=== PATIENT | female | born 1955 | race Caucasian/White ===

== ENCOUNTER 2018-06-26 05:33 | Inpatient (IN) | payer BC, OTHER ==
[2018-06-26] MEDS ORDERED: Magnesium Sulfate 2 GM/100 ML BAG ONE (05:51)
[2018-06-26] MEDS ORDERED: methylPREDNISolone Sod Succ/PF 125 MG/2 ML VIAL ONE (06:10)
[2018-06-26 06:12] LABS: #Basophils 0.2 thou/uL (0.0-0.2); #Eosinphils 2.5 thou/uL (0.0-0.7); #Lymphocytes 4.2 thou/uL (1.20-3.40); #Monocytes 0.9 thou/uL (0.11-0.59); #Neutrophils 6.2 thou/uL (1.40-6.50); %Basophils 1.4 % (0.0-1.0); %Eosinophils 18.1 % (0.0-10.0); %Monocytes 6.2 % (0.0-10.0); %Neutrophils 44.3 % (42.0-75.0); Hemoglobin 11.9 g/dL (12.0-16.0); Mean Corpuscular HGB CONC 32.3 g/dL (32.0-36.0); Mean Corpuscular Hemoglobin 26.2 pg (27.0-31.0); Mean Corpuscular Volume 81.2 fL (78.0-98.0); Mean Platelet Volume 8.1 fL (7.4-10.4); Platelet Count 277 thou/uL (130-400); RBC Distribution Width 13.6 % (11.5-14.5); Red Blood Cell (RBC) Count 4.55 mill/uL (4.20-5.40); White Blood Cell (WBC) Count 13.9 thou/uL (4.8-10.8)
[2018-06-26 06:25] LABS: ALT (SGPT) 18 U/L (8-55); AST (SGOT) 21 U/L (5-34); Albumin 4.2 g/dL (3.4-4.8); Alkaline Phosphatase 98 U/L (40-150); Anion Gap 13 mmol/L (10-20); BUN (Urea Nitrogen) 12 mg/dL (9.8-20.1); Bilirubin, Total 0.6 mg/dL (0.2-1.2); CK (CPK) 172 U/L (29-168); Calc. Creatinine Clearance 0 mL/min (70-130); Calcium 9.7 mg/dL (7.8-10.44); Carbon Dioxide 27 mmol/L (23-31); Chloride 95 mmol/L (98-107); Estimated GFR-MDRD 77; Globulin 2.5 g/dL (2.4-3.5); Glucose 108 mg/dL (80-115); Protein, Total 6.7 g/dL (6.0-8.3); Sodium 132 mmol/L (136-145)
[2018-06-26 06:26] LABS: Potassium 2.9 mmol/L (3.5-5.1)
[2018-06-26] MEDS ORDERED: Albuterol Sulfate 1.25 MG/3 ML NEB ONE (06:39)
--- NOTE | 2018-06-26 07:42 | RAD ---
PORTABLE CHEST: DATE: 06/26/2018. FINDINGS: An AP portable film at 0601 shows a normal-sized heart and clear lungs. No infiltrate or effusion is seen. There is no vascular congestion or edema. IMPRESSION: No acute thoracic finding. POS: HOME
[2018-06-26] MEDS ORDERED: Potassium Chloride 20 MEQ TAB ONE (08:00)
[2018-06-26] MEDS ORDERED: Levofloxacin 500 mg/D5W 100 ml Premix Bag ONE (08:20)
[2018-06-26] MEDS ORDERED: Acetaminophen 325 MG TAB PO PRN (10:32)
[2018-06-26] MEDS ORDERED: Ondansetron PF 4 MG/2 ML Vial IVP PRN (10:32)
[2018-06-26] MEDS ORDERED: Albuterol Sulfate 2.5 mg/3 ml Neb NEB PRN (10:33)
[2018-06-26] MEDS ORDERED: Ondansetron ODT 4 MG TAB PO PRN (10:33)
[2018-06-26] MEDS: methylPREDNISolone Sod Succ/PF 125 MG/2 ML VIAL IVP SCH ×2 (11:08→17:46)
[2018-06-26] MEDS: Sodium Chloride 0.9% 1,000 ML IV SCH ×2 (11:10→21:14)
--- NOTE | 2018-06-26 11:48 | CT ---
CT ANGIO OF THE CHEST WITH CONTRAST: DATE: 06/26/2018. FINDINGS: Spiral CT of the chest was performed for evaluation of dyspnea. Axial slices were acquired after a b olus of IV contrast. Oblique coronal reformations through the pulmonary arteries were obtained after wards. There is good opacification of the pulmonary arteries. No filling defects were seen to suggest pulmo nary emboli. There was no sign of aortic dissection or aneurysm. No mediastinal mass, significant a denopathy, or other pathology was seen. The coronary arteries fill and do not appear to be containin g many calcifications. There is no pericardial fluid. There are several patchy ground-glass densities throughout the lungs. Most are in the right upper lo be, but there are a few in the right middle lobe and left lower lobe. These are nonspecific findings and given their multiple locations, infection or atelectasis seems more likely etiologies than not. There are no effusions. No lobar infiltrates were seen. Scans from the upper abdomen barely show the adrenal glands, but the visualized areas appear normal. The visualized portions of the liver and spleen were unremarkable. IMPRESSION: 1. No evidence of pulmonary embolism. 2. Scattered ground-glass densities in the lungs, more so in the right upper lobe but also in other locations as mentioned. Atelectasis or infection are possible etiologies. The multiplicity of findi ngs make neoplasm less likely. Findings called to Dr. Carrillo at 0843 on 06/26/2018. CODE CR POS: HOME
[2018-06-26] MEDS ORDERED: Iopamidol 370 76% 100 ML VIAL ONE (16:50)
[2018-06-26] MEDS ORDERED: Loratadine 10 MG TAB PO SCH (19:30)
[2018-06-26] MEDS: Famotidine 20 MG TAB PO SCH (20:32)
[2018-06-27] MEDS: methylPREDNISolone Sod Succ/PF 125 MG/2 ML VIAL IVP SCH ×5 (00:06→21:56)
--- NOTE | 2018-06-27 01:22 | HP ---
CHIEF COMPLAINT: Shortness of breath. HISTORY OF THE PRESENT ILLNESS: Ms. Castle is a 63-year-old fairly healthy female with a past medical history of hypertension, who presented to the emergency department with worsening shortness of breath. The patient reports that at the end of March, she started with upper respiratory symptoms and had a persistent cough that was associated with a sinus infection. The sinus infection cleared, but the cough seemed to never go away. Then, approximately 2 to 3 weeks ago, she was evaluated while out of town and had fever, chills, malaise, nausea, vomiting, and had an influenza and rapid strep screen performed which were both negative. However, strong clinical suspicion for influenza prompted the doctor to treat with Tamiflu and a Z-Jonathan anyway. Her fever, chills, myalgia, and nausea improved. However, approximately 4 to 5 days ago, the patient became acutely worse with shortness of breath and presented to her primary care physician. Her O2 saturation at the time of that visit was 90% on room air. She received prescription for a nebulizer machine after a nebulizer treatment in the office provided some relief. Apparently, she also had lab work and an EKG performed as well. She has been doing neb treatments at home 3 to 4 times per day and also was prescribed a Medrol Dosepak. However, yesterday, her symptoms worsened, and she had to do more treatments than prescribed. This morning, she felt like she could not breathe and came in to be evaluated. She denies any chest pain, fever, chills, nausea, or vomiting since the acute illness 2 to 3 weeks ago. The patient interestingly reports that she has no personal smoking history and no significant secondhand smoke inhalation history. She, over the past few years, has had worsening back-to- back recurrent upper respiratory infections and wheezing in the winter. She has never required hospitalization. The patient reports that she is fairly healthy otherwise and only sees her primary care doctor when she is acutely ill. Therefore, she has not had a physical or full lab workup in some time. PAST MEDICAL HISTORY: 1. Hypertension. 2. Cervical cancer approximately 25 years ago that did not require chemotherapy. PAST SURGICAL HISTORY: Hysterectomy approximately 20 years ago with ovaries remaining. SOCIAL HISTORY: The patient denies any alcohol, smoking, or illicit drug use. ALLERGIES: BACTRIM, WHICH CAUSES ANAPHYLAXIS. FAMILY HISTORY: The patient denies any significant family history that is contributory. CURRENT MEDICATIONS: 1. Hydrochlorothiazide 12.5 mg p.o. daily. 2. Atenolol 50 mg p.o. q.a.m. REVIEW OF SYSTEMS: CONSTITUTIONAL: The patient had recent chills and fever approximately 2 to 3 weeks ago, but none since. Denies weakness, but does have significant dyspnea on exertion. HEENT: Eyes; patient denies eye redness, discharge, or eye pain. ENT; the patient denies rhinorrhea, sinus pressure, or sore throat. CARDIOVASCULAR: The patient denies chest pain, diaphoresis, palpitations. RESPIRATORY: The patient reports nonproductive cough with associated dyspnea and wheezing. No hemoptysis. GI: Denies diarrhea, nausea, or vomiting since her illness 2 to 3 weeks ago. No abdominal pain. MUSCULOSKELETAL: The patient denies any musculoskeletal pain. SKIN: The patient denies rash, ulcers, or lesions of concern. NEUROLOGIC: The patient reported a headache at her admission, but denies any dizziness, focal weakness, slurred speech, alteration of mental status. LYMPHATIC: The patient denies any swelling. PHYSICAL EXAMINATION: VITAL SIGNS: In the emergency room, blood pressure 153/113, pulse 115, O2 saturation 87% on room air, respirations 22, pain is 6/10. At the time of my exam, temperature 97.7, pulse 99, respirations 18, 94% O2 saturation on 2 L per nasal cannula, blood pressure 131/77. GENERAL: Well-developed, thin female, alert and oriented x4, in no acute distress. She is able to speak in complete sentences. HEENT: Normocephalic and atraumatic. Extraocular muscles intact. Pupils are equally round and reactive to light and accommodation. No conjunctival injection. Nares are patent without discharge. Tongue protrudes in the midline. NECK: Supple without lymphadenopathy, thyromegaly, JVD, or bruit. HEART: Slightly tachycardic, but regular rhythm. Normal S1 and S2. No murmurs , clicks, rubs or gallops. LUNGS: With bibasilar expiratory rales, but no crackles or wheezing. Slightly increased work of breathing with mild tachypnea. ABDOMEN: Positive bowel sounds in all four quadrants. Soft, nontender, nondistended. No masses, guarding, or rebound tenderness. EXTREMITIES: No cyanosis, clubbing, or edema. LABORATORY DATA: White count 13.9 with 44% neutrophils, 30% lymphocytes, 6% monocytes, 18% eosinophils, 1.4% basophils, hemoglobin 11.9, hematocrit 37.0, platelets 277. Sodium 132, potassium 2.9, chloride 95, bicarb 27, BUN 12, creatinine 0.76, glucose 108, calcium 9.7, T bilirubin 0.6, AST 21, ALT 18, alkaline phosphatase 98, CK 172, troponin I less than 0.010, BNP 10.2, albumin 4.2, globulin 2.5. IMAGIN. Chest x-ray with no acute thoracic findings with a normal-sized heart and clear lungs. 2. Chest and thorax CTA. No evidence of pulmonary embolism. Scattered ground- glass densities in the lungs, more so in the right upper lobe, but also in other locations as mentioned. Atelectasis or infection are possible etiologies. The multiplicity of findings make neoplasm less likely. EKG shows sinus tachycardia with a heart rate of 106, no ectopics, normal conduction, ST segments normal, T-waves normal, axis normal. ASSESSMENT AND PLAN: 1. Bronchitis with bronchospasm and hypoxia. The etiology of this is unclear. The patient will be admitted for empiric antibiotic therapy of Levaquin. She received her first dose in the emergency room. We will also give IV methylprednisolone. She already received her first infusion in the emergency department as well as mag sulfate and albuterol treatment per nebulizer and a DuoNeb. The patient will be placed on O2 and will wean as tolerated. We will repeat a CBC and a chest x- ray in the a.m. Given the recurrent infections per history, the significance of the hypoxia, no prior smoking history and the findings on the CT scan, she will need a Pulmonology evaluation. When she improves, we can order this as an outpatient at discharge. If the patient does not improve quickly, we will transfer her to a higher level of care for inpatient Pulmonary consultation. 2. Hypertension. Atenolol may not be the best agent in the context of the wheezing. She has been on this chronically, however, so I will continue this for now. We will also continue her hydrochlorothiazide for now, but may need an alternate agent secondary to her electrolyte abnormalities. We will adjust as we go. 3. Eosinophilic leukocytosis. The differential may be slightly altered secondary to the outpatient steroid therapy. We will repeat her CBC in the a.m. We will start the patient on antihistamine as tolerated. 4. Hypokalemia. Due to nebs and possibly HCTZ. The patient received 40 mEq of oral K-Dur in the emergency room. We will repeat a BMP in the a.m. 5. Hyponatremia. The hydrochlorothiazide may also be responsible for this. The patient received 500 mL of sodium chloride infusion in the emergency room. We will repeat her BMP in the morning. 6. Elevated creatine kinase. This is minimally elevated with negative troponin , and the patient is without chest pain. It is likely secondary to her accessory muscle use from hypoxia and shortness of breath. We will continue to monitor closely. 9. Prophylaxis. The patient will be placed on Pepcid. The patient is currently ambulatory, so we will just place SCDs. 10. Code status. Full code. Job ID: [id number] [facility]TD[facility]
[2018-06-27 06:18] LABS: Anion Gap 13 mmol/L (10-20); BUN (Urea Nitrogen) 13 mg/dL (9.8-20.1); Calc. Creatinine Clearance 0 mL/min (70-130); Calcium 9.5 mg/dL (7.8-10.44); Carbon Dioxide 23 mmol/L (23-31); Chloride 106 mmol/L (98-107); Estimated GFR-MDRD 80; Glucose 139 mg/dL (80-115); Potassium 4.2 mmol/L (3.5-5.1); Sodium 138 mmol/L (136-145)
[2018-06-27 06:37] LABS: Mean Corpuscular HGB CONC 30.8 g/dL (32.0-36.0); Mean Platelet Volume 8.1 fL (7.4-10.4); Platelet Count 278 thou/uL (130-400); RBC Distribution Width 14.3 % (11.5-14.5); Red Blood Cell (RBC) Count 4.24 mill/uL (4.20-5.40); White Blood Cell (WBC) Count 21.7 thou/uL (4.8-10.8)
[2018-06-27 06:39] LABS: Manual Diff?? YES
[2018-06-27 06:40] LABS: Band 1 % (5-11); Lymphocytes 5 % (21-51); Monocytes 1 % (0-10); Neutrophil 93 % (42-75)
[2018-06-27 06:41] LABS: Platelet Morphology Comment Appears Adequate
[2018-06-27 06:42] LABS: MDiff Complete? YES
[2018-06-27] MEDS: Sodium Chloride 0.9% 1,000 ML IV SCH (07:47)
[2018-06-27] MEDS: Hydrochlorothiazide 25 MG TAB PO SCH (08:41)
[2018-06-27] MEDS: Atenolol 50 MG TAB PO SCH (08:41)
[2018-06-27] MEDS: Famotidine 20 MG TAB PO SCH ×2 (08:42→21:56)
[2018-06-27 12:39] LABS: #Lymphocytes 1.2 thou/uL (1.20-3.40); #Monocytes 0.4 thou/uL (0.11-0.59); #Neutrophils 18.9 thou/uL (1.40-6.50); %Basophils 0.1 % (0.0-1.0); %Lymphocytes 5.9 % (21.0-51.0)
[2018-06-27 13:06] LABS: Mean Corpuscular Volume 82.5 fL (78.0-98.0)
[2018-06-27] MEDS: Loratadine 10 MG TAB PO SCH (13:48)
[2018-06-27] MEDS ORDERED: Vancomycin HCl 1 GM in Sodium Chloride 0.9% 250 ML 250 ML IVPB STA (13:55)
[2018-06-27] MEDS ORDERED: VANC IVPB PRN (13:59)
[2018-06-28] MEDS: Vancomycin HCl 1 GM in Sodium Chloride 0.9% 250 ML 250 ML IVPB SCH ×2 (02:09→15:14)
[2018-06-28 05:27] LABS: #Lymphocytes 1.3 thou/uL (1.20-3.40); #Monocytes 0.6 thou/uL (0.11-0.59); #Neutrophils 21.3 thou/uL (1.40-6.50); %Basophils 0.2 % (0.0-1.0); %Lymphocytes 5.5 % (21.0-51.0); %Monocytes 2.4 % (0.0-10.0); Hemoglobin 11.7 g/dL (12.0-16.0); Mean Corpuscular HGB CONC 31.8 g/dL (32.0-36.0); Mean Corpuscular Hemoglobin 26.9 pg (27.0-31.0); Mean Corpuscular Volume 84.4 fL (78.0-98.0); Mean Platelet Volume 8.7 fL (7.4-10.4); Platelet Count 318 thou/uL (130-400); RBC Distribution Width 14.6 % (11.5-14.5); Red Blood Cell (RBC) Count 4.36 mill/uL (4.20-5.40); White Blood Cell (WBC) Count 23.2 thou/uL (4.8-10.8)
[2018-06-28 05:35] LABS: Anion Gap 14 mmol/L (10-20); BUN (Urea Nitrogen) 19 mg/dL (9.8-20.1); Calc. Creatinine Clearance 0 mL/min (70-130); Calcium 9.7 mg/dL (7.8-10.44); Carbon Dioxide 26 mmol/L (23-31); Chloride 103 mmol/L (98-107); Estimated GFR-MDRD 74; Glucose 123 mg/dL (80-115); Potassium 3.6 mmol/L (3.5-5.1); Sodium 139 mmol/L (136-145)
[2018-06-28] MEDS: methylPREDNISolone Sod Succ/PF 125 MG/2 ML VIAL IVP SCH (06:33)
--- NOTE | 2018-06-28 07:34 | RAD ---
CHEST 2 VIEWS: Date: 06/28/18 Comparison is made with the 06/26/18 study. There has been no significant change. The heart is normal in size. There is no major lobar infiltrate or effusion. The lungs are slightly hyperexpanded. Minimal haziness is seen to the right of the hear t, but it is no different than before. IMPRESSION: No real change since 06/26/18. POS: HOME
[2018-06-28] MEDS: Atenolol 50 MG TAB PO SCH (08:47)
[2018-06-28] MEDS: Loratadine 10 MG TAB PO SCH (08:47)
[2018-06-28] MEDS: Hydrochlorothiazide 25 MG TAB PO SCH (08:47)
[2018-06-28] MEDS: Famotidine 20 MG TAB PO SCH ×2 (08:47→21:03)
[2018-06-28] MEDS ORDERED: guaiFENesin ER 600 MG TAB PO SCH (11:00)
[2018-06-28] MEDS: guaiFENesin ER 600 MG TAB PO SCH (21:04)
[2018-06-29] MEDS: Vancomycin HCl 1 GM in Sodium Chloride 0.9% 250 ML 250 ML IVPB SCH ×2 (02:02→15:30)
[2018-06-29 04:59] LABS: #Basophils 0.1 thou/uL (0.0-0.2); #Lymphocytes 3.7 thou/uL (1.20-3.40); #Neutrophils 8.8 thou/uL (1.40-6.50); %Basophils 0.8 % (0.0-1.0); %Eosinophils 0.2 % (0.0-10.0); %Lymphocytes 27.1 % (21.0-51.0); %Monocytes 7.1 % (0.0-10.0); %Neutrophils 64.8 % (42.0-75.0); Hemoglobin 10.7 g/dL (12.0-16.0); Mean Corpuscular HGB CONC 32.1 g/dL (32.0-36.0); Mean Corpuscular Hemoglobin 27.2 pg (27.0-31.0); Mean Corpuscular Volume 84.7 fL (78.0-98.0); Mean Platelet Volume 7.7 fL (7.4-10.4); Platelet Count 256 thou/uL (130-400); RBC Distribution Width 14.2 % (11.5-14.5); Red Blood Cell (RBC) Count 3.95 mill/uL (4.20-5.40); White Blood Cell (WBC) Count 13.5 thou/uL (4.8-10.8)
[2018-06-29] MEDS ORDERED: predniSONE 20 MG TAB PO SCH (08:00)
[2018-06-29] MEDS: guaiFENesin ER 600 MG TAB PO SCH (09:54)
[2018-06-29] MEDS: Hydrochlorothiazide 25 MG TAB PO SCH (09:55)
[2018-06-29] MEDS: Famotidine 20 MG TAB PO SCH (09:58)
[2018-06-29] MEDS: Atenolol 50 MG TAB PO SCH (09:59)
[2018-06-29] MEDS: Loratadine 10 MG TAB PO SCH (10:00)
[2018-06-29 17:11] VITALS: BP 132/73; TEMP 98
--- NOTE | 2018-06-30 04:52 | DIS ---
DATE OF ADMISSION: 06/26/2018 DATE OF DISCHARGE: 06/29/2018 ADMISSION DIAGNOSES: 1. Bronchitis with bronchospasm. 2. Hypoxia. 3. Hyponatremia. 4. Hypokalemia. 5. Hypertension. 6. Leukocytosis. DISCHARGE DIAGNOSES: 1. Bronchitis with bronchospasm. 2. Hypoxia. 3. Hyponatremia. 4. Hypokalemia. 5. Hypertension. 6. Leukocytosis. 7. One of two blood cultures positive for Corynebacterium, likely a contaminant. PROCEDURES: 1. Chest x-ray on the date of admission with no acute thoracic findings. 2. CTA of the chest and thorax from the date of admission showing no evidence for pulmonary embolism. Scattered ground-glass densities in the lungs, more so in the right upper lobe, but also in other locations as mentioned. Atelectasis or infection are possible etiologies. The multiplicity of findings make neoplasm less likely. 3. Chest x-ray from June 28, shows no real change since the previous study. 4. Blood culture #1, no growth at 48 hours. Blood culture #2, presumptive corynebacterium species with no further workup performed. 5. Respiratory culture showing moderate normal respiratory kelle including few yeast. LABORATORY RESULTS: White count from the date of admission 13,900 with 18% eosinophils, 44% neutrophils, and 30% lymphocytes with an increase to 23,200 on June 28 with 92% neutrophils after the patient was on antibiotics and steroid therapy, and decreased back to 13,500 with normal differential on the date of discharge. Sodium on admission 132, improved to 139; potassium 2.9 on admission , improved to 3.6. Cardiac profile positive for CK 172, but otherwise negative. B-type natriuretic peptide 10.2. HISTORY AND PHYSICAL: Please see dictated report from the date of admission. HOSPITAL COURSE: Ms. Castle is a 63-year-old female with a past medical history of hypertension, who reports over the past several years of progressive worsening recurrent upper respiratory infections in the winter. She had been treated for a couple of these respiratory infections these past couple of months including what was likely influenza. She had been seen in the outpatient setting and had some bronchospasm and was prescribed nebulizer machine as well as nebules and steroids, but continued to worsen with shortness of breath and presented to our hospital with acute hypoxia of 87% on room air. Her chest x- ray initially was negative, but she was found to have bronchospasm on exam, and was admitted with presumptive acute bronchitis with bronchospasm and hypoxia and given supportive O2, IV Solu-Medrol, empiric antibiotic therapy of Levaquin, and nebulizer treatments. A CT scan was performed in the emergency room to rule out PE, which did note some ground-glass densities that were scattered that would be consistent with either atelectasis or pneumonia. There was no PE. Vancomycin was added due to previous history of recent influenza on hospitalday #2 after her white count dramatically increased. She subsequently felt better on day #2, and continued to feel better daily. Mucinex ER was added to help expectorate sputum, which she was doing freely on the date of her discharge. On the date of her discharge, her temperature is 98.6, pulse 81, blood pressure 136/66, and O2 saturation is 97% on room air. She is calm and in no acute distress, and is ready to go home without any new complaints. Her heart is regular rate and rhythm without murmur and her lungs are clear to auscultation with good air entry bilaterally. No crackles or wheezes. No increased work of breathing is noted. She will be discharged on a 7-day course of Levaquin and a prednisone taper as well as an antihistamine as I do feel there is likely an allergy component to her symptoms and Mucinex ER. I have recommended that, due to the level of hypoxia on presentation and her lack of previous history, nonsmoking history, and non-exposure to second- hand smoke, that she be referred to a caustic liquor maker for further evaluation at the time of her hospital followup visit. She may need a CT scan of the chest repeated in approximately 6 weeks due to the ground-glass changes. The patient had low potassium and sodium on admission, which was likely a combination of hydrochlorothiazide plus her neb treatments. The potassium repleted orally with one dose. The sodium improved with IV fluids. If her electrolyte abnormalities recur, we will consider discontinuing the hydrochlorothiazide. The patient had a blood culture grow out an organism late in only one of two bottles with the species finally being identified as corynebacterium on the date of her discharge with microbiology planning no further workup as this is likely due to a contaminant. The patient has a history of hypertension, and throughout her hospital stay has been slightly hypertensive. It would be good to repeat her blood pressure in the outpatient setting. Atenolol may not be the best agent for her going forward if she is having recurrent bronchospasm. DISPOSITION: Discharged to home. CONDITION: Good. MEDICATIONS: 1. Hydrochlorothiazide 12.5 mg p.o. daily. 2. Atenolol 50 mg p.o. daily. 3. Prednisone 20 mg two p.o. daily x3 days, then one p.o. daily x3 days, then half p.o. daily x3 days, then stop. 4. Mucinex ER 1200 mg p.o. q.12 hours for 10 days, p.r.n. expectorant. 5. Claritin 10 mg p.o. daily. 6. Levaquin 500 mg p.o. daily x7 days. FOLLOWUP: The patient will follow up with either her prior primary care physician, Dr. Josh Delgado, or with me in my clinic in approximately 10 days. At her followup, I recommend a repeat basic metabolic profile and referral to Pulmonology. Job ID: [id number] [facility]
== END 2018-06-29 15:30 | disposition home or self-care (01) | DRG 202 ==
LOC: BURERS 05:33 → BURMED 08:00 → OBSVTOIN 08:00
PROVIDERS: ADMIT Family Medicine; ATTEND Family Medicine
DX: J20.9 Acute bronchitis, unspecified (principal); E87.1 Hypo-osmolality and hyponatremia; R09.02 Hypoxemia; E87.6 Hypokalemia; I10 Essential (primary) hypertension; Z85.41 Personal history of malignant neoplasm of cervix uteri; Z90.710 Acquired absence of both cervix and uterus; Z88.2 Allergy status to sulfonamides
CPT/HCPCS: 36415; 71045; 71046; 71275; 80048; 80053; 82550; 83880; 84484; 85025; 87040; 87070; 87205; 93005; 94640; 94760; 96365; 96375; J1956; J2405; J2930; J3370; J3475; J7050; J7620; Q9967

== ENCOUNTER 2018-08-10 10:36 | Emergency (ER) | payer OTHER ==
[2018-08-10] MEDS ORDERED: Magnesium Sulfate 2 GM/100 ML BAG ONE (10:57)
[2018-08-10] MEDS ORDERED: methylPREDNISolone Sod Succ/PF 125 MG/2 ML VIAL ONE ×2 (10:57→11:03)
[2018-08-10 11:04] LABS: #Basophils 0.1 thou/uL (0.0-0.2); #Lymphocytes 2.1 thou/uL (1.20-3.40); #Monocytes 0.8 thou/uL (0.11-0.59); #Neutrophils 4.5 thou/uL (1.40-6.50); %Basophils 1.5 % (0.0-1.0); %Eosinophils 12.2 % (0.0-10.0); %Monocytes 8.9 % (0.0-10.0); %Neutrophils 52.4 % (42.0-75.0); Hemoglobin 11.4 g/dL (12.0-16.0); Mean Corpuscular HGB CONC 32.3 g/dL (32.0-36.0); Mean Corpuscular Hemoglobin 27.2 pg (27.0-31.0); Mean Corpuscular Volume 84.3 fL (78.0-98.0); Mean Platelet Volume 8.5 fL (7.4-10.4); Platelet Count 219 thou/uL (130-400); RBC Distribution Width 14.7 % (11.5-14.5); White Blood Cell (WBC) Count 8.5 thou/uL (4.8-10.8)
[2018-08-10] MEDS ORDERED: Albuterol Sulfate 1.25 MG/3 ML NEB ONE ×2 (11:12→11:53)
[2018-08-10 11:19] LABS: ALT (SGPT) 22 U/L (8-55); AST (SGOT) 26 U/L (5-34); Albumin 4.1 g/dL (3.4-4.8); Alkaline Phosphatase 75 U/L (40-150); Anion Gap 13 mmol/L (10-20); BUN (Urea Nitrogen) 7 mg/dL (9.8-20.1); Bilirubin, Total 0.3 mg/dL (0.2-1.2); Calc. Creatinine Clearance 0 mL/min (70-130); Calcium 9.5 mg/dL (7.8-10.44); Carbon Dioxide 25 mmol/L (23-31); Chloride 102 mmol/L (98-107); Estimated GFR-MDRD 72; Globulin 2.5 g/dL (2.4-3.5); Glucose 99 mg/dL (80-115); Potassium 3.7 mmol/L (3.5-5.1); Protein, Total 6.6 g/dL (6.0-8.3); Sodium 136 mmol/L (136-145)
[2018-08-10 12:09] LABS: Base Excess-Venous -1.2 mmol/L (-2.0 to 3.0); Bicarbonate (HCO3v) 22.3 mmol/L (22.0-28.0); CO2 Tension (PvCO2) 32.7 mmHg (40.0-50.0); Chloride 103 mmol/L (98-107); Hemoglobin - Calc 12.4 g/dL (12.0-16.0); Sodium 135 mmol/L (138-145); T. Carbon Dioxide 23.3 mmol/L (22.0-28.0); pH (Venous) 7.443 (7.320-7.430); vO2 Saturation-calc 95.1 % (60.0-85.0)
[2018-08-10 12:10] LABS: Calcium, Ionized 1.08 mmol/L (See Comments:)
--- NOTE | 2018-08-10 13:00 | RAD ---
PORTABLE CHEST: Date: 08/10/18 An AP portable film at 1102 hours is compared with the 06/28/18 study. FINDINGS: The heart is normal in size and the lungs are clear. No infiltrate or effusion seen. There is no dandre estion or edema. The mediastinum appears normal. IMPRESSION: No acute thoracic finding. POS: HOME
== END 2018-08-10 13:40 | disposition short-term general hospital (02) ==
LOC: BURERS 10:36
DX: J98.01 Acute bronchospasm (principal); I10 Essential (primary) hypertension; Z79.899 Other long term (current) drug therapy
CPT/HCPCS: 71045; 80053; 82330; 82803; 83605; 83880; 84484; 85025; 87040; 87070; 87077; 87086; 87186; 87205; 87206; 94640; 94760; 96365; 96367; 96375; J1956; J2930; J3475; J7620

== ENCOUNTER 2019-05-09 12:11 | Outpatient (CLI) | payer MEDICARE ==
--- NOTE | 2019-05-09 21:35 | RAD ---
CHEST TWO VIEWS: 05/09/19 Comparison is made with the 08/12/18 study. There is a dense consolidation in the left lung base that appears to be in the anterior basal segment and laterally. Pneumonia is presumed. There is no large pleural effusion. Additionally, there is a p atchy amorphous density in the right upper lobe peripherally. Neither of these were present on the pr ior study. My presumption is that the right upper lobe finding is most likely infection as well, but it needs to be followed to complete resolution. The heart size is normal. The trachea is midline. IMPRESSION: 1. Left basilar pneumonia. 2. Patchy density in the right upper lobe, probably a small focus of infection as well. [facility] to complete resolution is needed. Findings discussed with Dr. Goldstein at 1421 on 05/09/2019. POS: HOME
== END 2019-05-09 12:12 | disposition home or self-care (01) ==
LOC: BUREKG 12:11
PROVIDERS: ATTEND Family Medicine
DX: R09.1 Pleurisy (principal); J18.9 Pneumonia, unspecified organism; R91.8 Other nonspecific abnormal finding of lung field
CPT/HCPCS: 71046; 93005; 93010

== ENCOUNTER 2019-05-14 10:49 | Outpatient (CLI) | payer MEDICARE ==
--- NOTE | 2019-05-14 17:19 | RAD ---
CHEST TWO VIEWS: 05/14/19 Comparison is made with the 05/09 study. There has been significant improvement in the right basilar i nfiltrate over the interval. There is still some residual, but the degree of improvement is large. Th e patchy amorphous area noted in the right upper lobe has resolved already. The right lung is now manda ar. The heart is normal in size. IMPRESSION: Pneumonia resolving. Minor residual remaining. It might be good to get a final follow-up film in the next three to four weeks to show complete resolution. POS: HOME
== END 2019-05-14 10:50 | disposition home or self-care (01) ==
LOC: BURRAD 10:49
PROVIDERS: ATTEND Family Medicine
DX: J18.9 Pneumonia, unspecified organism (principal)
CPT/HCPCS: 71046

== ENCOUNTER 2019-07-01 14:02 | Outpatient (CLI) | payer MEDICARE ==
--- NOTE | 2019-07-01 14:48 | RAD ---
XR Chest Pa Lat STANDARD HISTORY: Asthmatic bronchitis with exacerbation COMPARISON: 05/14/2019 FINDINGS: The heart size is normal. The lungs are well expanded without focal areas of consolidation, pneumothorax or pleural effusions. There are degenerative changes in the spine. IMPRESSION: No radiographic evidence of acute cardiopulmonary process.
== END 2019-07-01 14:03 | disposition home or self-care (01) ==
LOC: BURRAD 14:02
PROVIDERS: ATTEND Physician Assistant
DX: J45.41 Moderate persistent asthma with (acute) exacerbation (principal); R50.9 Fever, unspecified
CPT/HCPCS: 71046

== ENCOUNTER 2020-12-20 17:49 | Emergency (ER) | payer MEDICARE, OTHER ==
[2020-12-20] MEDS ORDERED: Acetaminophen 500 MG TAB ONE (18:24)
[2020-12-20] MEDS ORDERED: Dexamethasone 4 MG TAB ONE (18:48)
[2020-12-20 19:13] LABS: #Basophils 0.1 thou/uL (0.0-0.2); #Eosinphils 0.3 thou/uL (0.0-0.7); #Lymphocytes 1.3 thou/uL (1.20-3.40); #Monocytes 0.6 thou/uL (0.11-0.59); #Neutrophils 5.8 thou/uL (1.40-6.50); %Eosinophils 3.4 % (0.0-10.0); %Lymphocytes 16.5 % (21.0-51.0); %Monocytes 7.4 % (0.0-10.0); %Neutrophils 71.7 % (42.0-75.0); CO2 Tension (PvCO2) 43.7 mmHg (42.0-51.0); Hemoglobin 12.8 g/dL (12.0-16.0); Mean Corpuscular HGB CONC 33.4 g/dL (32.0-36.0); Mean Corpuscular Volume 83.8 fL (78.0-98.0); Mean Platelet Volume 10.6 fL (7.4-10.4); Platelet Count 175 thou/uL (130-400); RBC Distribution Width 13.2 % (11.5-14.5); Red Blood Cell (RBC) Count 4.56 mill/uL (4.20-5.40)
[2020-12-20 19:14] LABS: Bicarbonate (HCO3v) 26.3 mmol/L (22.0-28.0); Chloride 98 mmol/L (98-107); Hemoglobin - Calc 13.2 g/dL (12.0-16.0); Potassium 3.8 mmol/L (3.5-5.1); Sodium 136 mmol/L (138-145); vO2 Saturation-calc 66.3 % (60.0-85.0)
[2020-12-20 19:15] LABS: Calcium, Ionized 1.12 mmol/L (1.15-1.33); T. Carbon Dioxide 27.6 mmol/L (22.0-28.0)
[2020-12-20 19:16] LABS: ALT (SGPT) 91 U/L (8-55); AST (SGOT) 42 U/L (5-34); Alkaline Phosphatase 226 U/L (40-110); Anion Gap 16 mmol/L (10-20); BUN (Urea Nitrogen) 11 mg/dL (9.8-20.1); Bilirubin, Total 0.4 mg/dL (0.2-1.2); Calc. Creatinine Clearance 0 mL/min (70-130); Calcium 9.6 mg/dL (7.8-10.44); Carbon Dioxide 25 mmol/L (23-31); Chloride 99 mmol/L (98-107); Glucose 118 mg/dL (80-115); Potassium 3.9 mmol/L (3.5-5.1); Sodium 136 mmol/L (136-145)
== END 2020-12-20 19:40 | disposition home or self-care (01) ==
LOC: BURERS 17:49
DX: R05 Cough (principal); R50.9 Fever, unspecified; R51.9 Headache, unspecified; Z20.822 Contact with and (suspected) exposure to COVID-19; I10 Essential (primary) hypertension; Z79.899 Other long term (current) drug therapy
CPT/HCPCS: 36415; 71045; 80053; 82330; 82803; 85025; 94640; 94760; J7620; J8540

== ENCOUNTER 2021-07-03 20:26 | Inpatient (IN) | payer MEDICARE ==
[2021-07-03] MEDS ORDERED: cefTRIAXone\\ROCEPHIN 2 GM VIAL ONE (20:54)
[2021-07-03 21:22] LABS: #Lymphocytes 0.8 thou/uL (1.20-3.40); #Monocytes 0.9 thou/uL (0.11-0.59); #Neutrophils 13.8 thou/uL (1.40-6.50); %Basophils 0.3 % (0.0-1.0); %Lymphocytes 5.3 % (21.0-51.0); %Monocytes 5.5 % (0.0-10.0); %Neutrophils 88.9 % (42.0-75.0); Hemoglobin 12.9 g/dL (12.0-16.0); Mean Corpuscular HGB CONC 34.5 g/dL (32.0-36.0); Mean Corpuscular Hemoglobin 28.5 pg (27.0-31.0); Mean Corpuscular Volume 82.6 fL (78.0-98.0); Mean Platelet Volume 9.8 fL (7.4-10.4); Platelet Count 155 thou/uL (130-400); RBC Distribution Width 14.1 % (11.5-14.5); Red Blood Cell (RBC) Count 4.54 mill/uL (4.20-5.40); White Blood Cell (WBC) Count 15.5 thou/uL (4.8-10.8)
[2021-07-03 21:27] LABS: ALT (SGPT) 30 U/L (8-55); AST (SGOT) 39 U/L (5-34); Albumin 3.9 g/dL (3.4-4.8); Alkaline Phosphatase 64 U/L (40-110); Anion Gap 19 mmol/L (10-20); BUN (Urea Nitrogen) 13 mg/dL (9.8-20.1); Calc. Creatinine Clearance 0 mL/min (70-130); Calcium 8.6 mg/dL (7.8-10.44); Carbon Dioxide 22 mmol/L (23-31); Chloride 96 mmol/L (98-107); Globulin 2.9 g/dL (2.4-3.5); Glucose 131 mg/dL (80-115); Potassium 3.1 mmol/L (3.5-5.1); Protein, Total 6.8 g/dL (5.8-8.1); Sodium 134 mmol/L (136-145)
[2021-07-03] MEDS ORDERED: methylPREDNISolone Sod Succ/PF 125 MG/2 ML VIAL ONE (21:45)
[2021-07-03 21:52] LABS: SARS-CoV-2 NAA Rapid Test Not Detected (NotDetected)
[2021-07-03 22:59] VITALS: BMI 25.8
[2021-07-03] MEDS ORDERED: Albuterol Sulfate 2.5 mg/3 ml Neb NEB PRN (22:59)
[2021-07-03] MEDS ORDERED: Acetaminophen 325 MG TAB PO PRN (23:00)
[2021-07-03] MEDS ORDERED: Ondansetron ODT 4 MG TAB SL PRN (23:00)
[2021-07-03] MEDS ORDERED: Ondansetron PF 4 MG/2 ML Vial IVP PRN (23:00)
[2021-07-03] MEDS ORDERED: Dextrose 5 %-0.45 % NaCl 1,000 ML IV SCH (23:00)
[2021-07-03] MEDS ORDERED: Benzonatate 100 MG CAP PO PRN (23:31)
[2021-07-03] MEDS ORDERED: diphenhydrAMINE 25 MG CAP PO PRN (23:32)
[2021-07-03] MEDS ORDERED: Oseltamivir 75 MG CAP PO SCH (23:59)
[2021-07-04] MEDS: Melatonin 3 MG TAB PO PRN (00:22)
[2021-07-04 01:02] LABS: Bilirubin Small (Negative); Blood, Urine Trace (Negative); Clarity Cloudy (Clear); Glucose, Urine (Dipstick) Negative (Negative); Ketone, Urine 15 mg/dL (Negative); Leukocyte Negative (Negative); Nitrite Negative (Negative); Protein, Urine (Dipstick) 100 mg/dL (Neg-Trace); Urobilinogen 0.2 mg/dL (Less than 2)
[2021-07-04 01:09] LABS: RBC/HPF 0-3 HPF (0-3); WBC/HPF 0-3 HPF (0-3)
[2021-07-04 01:10] LABS: Bacteria/HPF 1+ HPF (None Seen); Mucous/LPF 1+ LPF (<2+)
[2021-07-04] MEDS ORDERED: Loratadine 10 MG TAB PO SCH (09:00)
[2021-07-04] MEDS ORDERED: Montelukast Sodium 10 mg Tablet PO SCH (09:00)
[2021-07-04] MEDS ORDERED: Hydrochlorothiazide 25 MG TAB PO SCH (09:00)
[2021-07-04] MEDS ORDERED: Fluticasone Propionate Nasal Spray 16 gm Bottle NASAL SCH (09:00)
[2021-07-04] MEDS: Oseltamivir 75 MG CAP PO SCH ×2 (10:08→21:15)
[2021-07-04] MEDS ORDERED: Albuterol Sulfate 2.5 mg/3 ml Neb EZPAP PRN (10:30)
[2021-07-04] MEDS ORDERED: Benzonatate 100 MG CAP PO PRN (10:31)
[2021-07-04] MEDS ORDERED: diphenhydrAMINE 25 MG CAP PO PRN (10:31)
[2021-07-04 11:15] LABS: #Monocytes 0.4 thou/uL (0.11-0.59); #Neutrophils 12.3 thou/uL (1.40-6.50); %Basophils 0.1 % (0.0-1.0); %Lymphocytes 7.5 % (21.0-51.0); %Monocytes 2.7 % (0.0-10.0); %Neutrophils 89.7 % (42.0-75.0); Hemoglobin 11.8 g/dL (12.0-16.0); Mean Corpuscular HGB CONC 32.6 g/dL (32.0-36.0); Mean Corpuscular Hemoglobin 27.4 pg (27.0-31.0); Mean Corpuscular Volume 84.1 fL (78.0-98.0); Mean Platelet Volume 10.8 fL (7.4-10.4); Platelet Count 134 thou/uL (130-400); RBC Distribution Width 14.2 % (11.5-14.5); Red Blood Cell (RBC) Count 4.32 mill/uL (4.20-5.40); White Blood Cell (WBC) Count 13.8 thou/uL (4.8-10.8)
[2021-07-04 11:30] LABS: Anion Gap 15 mmol/L (10-20); BUN (Urea Nitrogen) 14 mg/dL (9.8-20.1); Calc. Creatinine Clearance 77 mL/min (70-130); Calcium 8.5 mg/dL (7.8-10.44); Carbon Dioxide 22 mmol/L (23-31); Chloride 100 mmol/L (98-107); Glucose 249 mg/dL (80-115); Sodium 134 mmol/L (136-145)
[2021-07-04 11:31] LABS: Potassium 2.9 mmol/L (3.5-5.1)
[2021-07-04] MEDS ORDERED: Potassium Chloride 20 MEQ TAB PO SCH (12:15)
[2021-07-04] MEDS ORDERED: cefTRIAXone\\ROCEPHIN 1 GM in Sodium Chloride 0.9% 100 ML IVPB SCH (20:00)
[2021-07-04] MEDS ORDERED: rOPINIRole HCl 0.25 MG TAB PO SCH ×2 (21:00)
[2021-07-04] MEDS ORDERED: Acetaminophen 500 MG TAB PO PRN (21:05)
[2021-07-05] MEDS: Melatonin 3 MG TAB PO PRN (00:08)
[2021-07-05] MEDS: Fluticasone Propionate Nasal Spray 16 gm Bottle NASAL SCH ×2 (00:20→09:59)
[2021-07-05 05:34] LABS: #Basophils 0.1 thou/uL (0.0-0.2); #Lymphocytes 1.6 thou/uL (1.20-3.40); #Monocytes 0.9 thou/uL (0.11-0.59); #Neutrophils 16.9 thou/uL (1.40-6.50); %Basophils 0.3 % (0.0-1.0); %Lymphocytes 8.2 % (21.0-51.0); %Monocytes 4.6 % (0.0-10.0); Hemoglobin 11.7 g/dL (12.0-16.0); Mean Corpuscular HGB CONC 33.3 g/dL (32.0-36.0); Mean Corpuscular Hemoglobin 27.7 pg (27.0-31.0); Mean Corpuscular Volume 83.1 fL (78.0-98.0); Mean Platelet Volume 9.9 fL (7.4-10.4); Platelet Count 162 thou/uL (130-400); RBC Distribution Width 14.1 % (11.5-14.5); Red Blood Cell (RBC) Count 4.21 mill/uL (4.20-5.40); White Blood Cell (WBC) Count 19.5 thou/uL (4.8-10.8)
[2021-07-05 06:08] LABS: Anion Gap 13 mmol/L (10-20); BUN (Urea Nitrogen) 15 mg/dL (9.8-20.1); Calc. Creatinine Clearance 82 mL/min (70-130); Calcium 8.7 mg/dL (7.8-10.44); Carbon Dioxide 26 mmol/L (23-31); Chloride 102 mmol/L (98-107); Glucose 132 mg/dL (80-115); Potassium 3.8 mmol/L (3.5-5.1); Sodium 137 mmol/L (136-145)
[2021-07-05] MEDS ORDERED: Montelukast Sodium 10 mg Tablet PO SCH (09:00)
[2021-07-05] MEDS ORDERED: Hydrochlorothiazide 25 MG TAB PO SCH (09:00)
[2021-07-05] MEDS ORDERED: Loratadine 10 MG TAB PO SCH (09:00)
[2021-07-05] MEDS: Oseltamivir 75 MG CAP PO SCH (10:00)
[2021-07-05 11:09] VITALS: BP 119/73; TEMP 98.5
== END 2021-07-05 14:48 | disposition home or self-care (01) | DRG 195 ==
LOC: BURERS 20:26 → BURMED 21:45
PROVIDERS: ADMIT Family Medicine; ATTEND Family Medicine
DX: J10.00 Influenza due to other identified influenza virus with unspecified type of pneumonia (principal); E86.0 Dehydration; E87.6 Hypokalemia; I10 Essential (primary) hypertension; Z20.822 Contact with and (suspected) exposure to COVID-19; R09.02 Hypoxemia; Z90.710 Acquired absence of both cervix and uterus; Z85.41 Personal history of malignant neoplasm of cervix uteri; Z79.899 Other long term (current) drug therapy; Z88.1 Allergy status to other antibiotic agents
CPT/HCPCS: 36415; 71045; 71046; 80048; 80053; 81001; 83605; 83880; 84484; 85025; 87040; 87804; 93005; 94640; 94760; 96365; 96375; J0696; J1956; J2930; J3490; J7042; J7611; J7620; U0002

== ENCOUNTER 2021-09-07 09:29 | Outpatient (CLI) | payer MEDICARE ==
[2021-09-07 09:53] LABS: #Basophils 0.1 thou/uL (0.0-0.2); #Eosinphils 0.3 thou/uL (0.0-0.7); #Lymphocytes 2.7 thou/uL (1.20-3.40); #Monocytes 0.6 thou/uL (0.11-0.59); %Basophils 1.2 % (0.0-1.0); %Eosinophils 3.7 % (0.0-10.0); %Neutrophils 52.1 % (42.0-75.0); Hemoglobin 12.9 g/dL (12.0-16.0); Mean Corpuscular Hemoglobin 28.2 pg (27.0-31.0); Mean Platelet Volume 8.6 fL (7.4-10.4); Platelet Count 261 thou/uL (130-400); Red Blood Cell (RBC) Count 4.58 mill/uL (4.20-5.40); White Blood Cell (WBC) Count 7.6 thou/uL (4.8-10.8)
[2021-09-07 11:47] LABS: ALT (SGPT) 28 U/L (8-55); AST (SGOT) 24 U/L (5-34); Albumin 4.2 g/dL (3.4-4.8); Alkaline Phosphatase 81 U/L (40-110); Anion Gap 13 mmol/L (10-20); BUN (Urea Nitrogen) 11 mg/dL (9.8-20.1); Bilirubin, Total 0.4 mg/dL (0.2-1.2); Calc. Creatinine Clearance 0 mL/min (70-130); Calcium 9.3 mg/dL (7.8-10.44); Carbon Dioxide 28 mmol/L (23-31); Chloride 105 mmol/L (98-107); Globulin 2.8 g/dL (2.4-3.5); Glucose 88 mg/dL (80-115); Potassium 4.4 mmol/L (3.5-5.1); Sodium 142 mmol/L (136-145)
[2021-09-07 17:10] LABS: Hemoglobin A1c 5.4 % (4.0-6.0)
== END 2021-09-07 09:30 | disposition home or self-care (01) ==
LOC: BURRAD 09:29
PROVIDERS: ATTEND Family Medicine
DX: J18.9 Pneumonia, unspecified organism (principal); R19.5 Other fecal abnormalities
CPT/HCPCS: 36415; 71046; 80053; 83036; 85025